=== PATIENT | male | born 1935 | race Caucasian/White ===

== ENCOUNTER 2019-03-12 07:32 | Day surgery (SDC) | payer BC ==
[~2019-03-12] VITALS: Ht 172.7 cm; Wt 72.6 kg
[~2019-03-12 07:32] MED LIST: Aspirin EC81 MG PO; Bisoprolol-Hct1 EAC2 PO; EYE VITAMIN PO; FIBER SUPPLEMENT; FISH OIL 1,0001 EAC1 PO; HYDCHL12.5 PO; LEVE500 PO; LEVSOD50 PO; LISI20 PO; Norco 5-325 Ta1 EACH PO; PRAV20 PO; TAMS.4ER PO; WARF2.5; WARF2.5 PO; WARF5; WARF5 PO; ZESTORETIC 20-121 EA PO; [UNRECOGNIZED DRUG - OTHER] PO
[2019-03-12] MEDS ORDERED: GABA300 ×2 (08:16→08:19)
[2019-03-12] MEDS ORDERED: Pravachol20 MG (08:19)
[2019-03-12] MEDS ORDERED: Jantoven5 MG (08:19)
== END 2019-03-12 09:46 | disposition home or self-care (01) ==
LOC: ORSCSDS 07:32
PROVIDERS: Ophthalmology
PROC: 08RK3JZ Replacement of Left Lens with Synthetic Substitute, Percutaneous Approach (ICD-10-PCS; principal; 2019-03-12 09:00)
DX: H25.12 Age-related nuclear cataract, left eye (principal); H21.81 Floppy iris syndrome; I10 Essential (primary) hypertension; E03.9 Hypothyroidism, unspecified; I25.2 Old myocardial infarction; Z87.891 Personal history of nicotine dependence; Z79.899 Other long term (current) drug therapy
CPT/HCPCS: J2001; J2250; J3010; J3301; J7120; V2632

== ENCOUNTER → 2021-12-23 | Outpatient (CLI) | payer BC ==
[~2021-12-23] MED LIST changes: +GABA300; +Jantoven5 MG; +Pravachol20 MG
[2021-12-23 15:39] LABS: BASOPHILS PERCENT AUTO 0 % (0-2); EOSINOPHILS PERCENT AUTO 0 % (0-6); Hematocrit 35.8 % (37.0-53.0); IMMATURE GRAN ABSOLUTE AUTO 0.04 K/mm3 (0.00-0.10); IMMATURE GRAN PERCENT AUTO 1 % (0-1); LYMPHOCYTES ABSOLUTE AUTO 0.55 K/mm3 (0.84-5.20); LYMPHOCYTES PERCENT AUTO 9 % (21-46); MONOCYTES ABSOLUTE AUTO 0.23 K/mm3 (0.16-1.47); MONOCYTES PERCENT AUTO 4 % (4-13); Mean Corpuscular HGB Conc 33.5 g/dL (31.5-36.5); Mean Corpuscular Volume 83 fL (80-100); Mean Platelet Volume 10.2 fL (9.1-12.4); NEUTROPHILS ABSOLUTE AUTO 5.62 K/mm3 (1.96-9.15); NEUTROPHILS PERCENT AUTO 87 % (41-73); Platelet Count 213 K/mm3 (150-400); RDW Coefficient Variation 14.2 % (11.7-14.2); RDW Standard Deviation 42.5 fL (35.1-46.3); Red Blood Cell Count 4.29 M/mm3 (4.30-5.90); White Blood Cell Count 6.44 K/mm3 (4.00-11.30)
[2021-12-23 15:44] LABS: Bun/Creatinine Ratio 17.1 (12.0-20.0); Creatinine, Blood 1.52 mg/dL (0.60-1.20); Potassium, Blood 4.6 mmol/L (3.5-5.5)
== END ==
LOC: LAB SHORT 15:21
PROVIDERS: Physician Assistant Surgical
DX: R53.83 Other fatigue (principal)
CPT/HCPCS: 80048; 84484; 85025; 85379; 87086

== ENCOUNTER 2022-01-12 11:34 | Emergency (ER) | payer BC ==
[~2022-01-12] VITALS: Ht 172.7 cm; Wt 64.9 kg
[2022-01-12 12:10] LABS: BASOPHILS ABSOLUTE AUTO 0.01 K/mm3 (0.00-0.23); BASOPHILS PERCENT AUTO 0 % (0-2); EOSINOPHILS ABSOLUTE AUTO 0.06 K/mm3 (0.00-0.68); EOSINOPHILS PERCENT AUTO 1 % (0-6); Hematocrit 30.1 % (37.0-53.0); Hemoglobin 9.7 g/dL (13.5-17.5); IMMATURE GRAN ABSOLUTE AUTO 0.02 K/mm3 (0.00-0.10); IMMATURE GRAN PERCENT AUTO 1 % (0-1); LYMPHOCYTES ABSOLUTE AUTO 0.65 K/mm3 (0.84-5.20); LYMPHOCYTES PERCENT AUTO 15 % (21-46); MONOCYTES ABSOLUTE AUTO 0.33 K/mm3 (0.16-1.47); MONOCYTES PERCENT AUTO 8 % (4-13); Mean Corpuscular HGB 28.1 pg (26.0-34.0); Mean Corpuscular HGB Conc 32.2 g/dL (31.5-36.5); Mean Corpuscular Volume 87 fL (80-100); NEUTROPHILS ABSOLUTE AUTO 3.18 K/mm3 (1.96-9.15); NEUTROPHILS PERCENT AUTO 75 % (41-73); Platelet Count 133 K/mm3 (150-400); RDW Coefficient Variation 16.2 % (11.7-14.2); RDW Standard Deviation 50.2 fL (35.1-46.3); Red Blood Cell Count 3.45 M/mm3 (4.30-5.90); White Blood Cell Count 4.25 K/mm3 (4.00-11.30)
[2022-01-12 12:25] LABS: Alanine Aminotransfer (ALT/SGP 70 U/L (12-78); Albumin, Blood 2.8 g/dL (3.4-5.0); Albumin/Globulin Ratio 0.8 (0.8-1.8); Alk Phos 58 U/L (50-136); Anion Gap 7 mmol/L (6-16); Aspartate Aminotrans (AST/SGOT 39 U/L (12-37); Bilirubin, Total 0.4 mg/dL (0.1-1.0); Blood Urea Nitrogen 16 mg/dL (8-24); Bun/Creatinine Ratio 21.2 (12.0-20.0); CO2, Blood 25 mmol/L (21-32); Calcium, Blood 8.8 mg/dL (8.5-10.1); Chloride, Blood 108 mmol/L (98-108); Creatinine, Blood 0.76 mg/dL (0.60-1.20); Globulin, Blood 3.3 g/dL (2.2-4.0); Glomerular Filtration Rate >60 (60-); Glucose, Blood 132 mg/dL (70-99); Sodium, Blood 140 mmol/L (136-145); Total Protein, Blood 6.1 g/dL (6.4-8.2)
[2022-01-12 13:05] LABS: International Normalized Ratio 1.03; Prothrombin Time Results 10.8 Sec (9.7-11.5)
== END 2022-01-12 15:02 | disposition short-term general hospital (02) ==
LOC: ER 11:34
PROVIDERS: Emergency Medicine
DX: S06.5X9A Traumatic subdural hemorrhage with loss of consciousness of unspecified duration, initial encounter (principal); R55 Syncope and collapse; D64.9 Anemia, unspecified; I48.91 Unspecified atrial fibrillation; W18.30XA Fall on same level, unspecified, initial encounter; Z79.899 Other long term (current) drug therapy; Z79.01 Long term (current) use of anticoagulants; I10 Essential (primary) hypertension; E03.9 Hypothyroidism, unspecified; E78.00 Pure hypercholesterolemia, unspecified; I25.2 Old myocardial infarction; Z87.891 Personal history of nicotine dependence
CPT/HCPCS: 70450; 71045; 72125; 80053; 84443; 84484; 85025; 85610; 85730; 93005; 93010; J1953

== ENCOUNTER 2025-02-18 11:35 | Day surgery (SDC) | payer BC ==
[~2025-02-18] VITALS: Ht 172.7 cm; Wt 65.7 kg
[~2025-02-18 11:35] MED LIST changes: +Balanced Salt Epinephrine Irrigation Solution 500 mL IR SCH; +Diazepam 5 MG Tab PO PRN; +Diazepam 5 MG Tab PO SCH; +Lidocaine HCl/Pf 1% 5 ML VIAL XX SCH; +Moxifloxacin HCL 0.5 MG/0.1 ML 0.4MLSYR RIGHTEYE SCH; +Ondansetron 4 MG SoluTab MM PRN; +PHENYLEPHRINE\\TROPICAMIDE\\TETRACAINE OPHTHALMIC DILATING SOLN RIGHTEYE PRN; +Povidone-Iodine 450 DROP/30 ML Solution ONE; +Povidone-Iodine 450 DROP/30 ML Solution RIGHTEYE SCH; +Tetracaine HCl/Pf 0.5% Opth Soln 4 ml ONE
[2025-02-18] MEDS ORDERED: Diazepam 5 MG Tab ONE (11:49)
[2025-02-18] MEDS ORDERED: Diazepam 2 MG Tab ONE (11:49)
--- NOTE | 2025-02-18 11:57 | NUR ---
02/18/25 Tenisha Richardson PT REPORTS INITIAL ANXIETY 0/10
[2025-02-18] MEDS ORDERED: ROSUVASTATIN CA20 MG PO (12:05)
[2025-02-18] MEDS ORDERED: TAMSULOSIN HCL0.4 M1 PO (12:06)
[2025-02-18] MEDS ORDERED: [UNRECOGNIZED DRUG - OTHER] (12:07)
[2025-02-18] MEDS ORDERED: Preservision S1 EACH (12:07)
[2025-02-18] MEDS ORDERED: PANT40 PO (12:10)
--- NOTE | 2025-02-18 12:42 | NUR ---
02/18/25 1242 Zulema George BP: 157/61 SP02 96% HR 54
[2025-02-18 12:58] VITALS: BP 149/76
== END 2025-02-18 13:10 | disposition home or self-care (01) ==
LOC: ORSCSDS 11:35
PROVIDERS: Student in an Organized Health Care Education/Training Program
PROC: 08RJ3JZ Replacement of Right Lens with Synthetic Substitute, Percutaneous Approach (ICD-10-PCS; principal; 2025-02-18 13:00)
DX: H25.811 Combined forms of age-related cataract, right eye (principal); Z96.1 Presence of intraocular lens; Z87.891 Personal history of nicotine dependence; H35.89 Other specified retinal disorders; H26.492 Other secondary cataract, left eye; H35.3230 Exudative age-related macular degeneration, bilateral, stage unspecified; Z79.899 Other long term (current) drug therapy
CPT/HCPCS: A9270; V2632